=== PATIENT | male | born 1945 | race Caucasian/White ===

== ENCOUNTER 2021-01-28 08:36 | Inpatient (IN) | payer OTHER, MEDICAID, SELFPAY ==
[~2021-01-28] VITALS: Ht 172.7 cm; Wt 101.6 kg
[~2021-01-28 08:36] MED LIST: HYD10 PO; LEVO125C4 PO; LIP10 PO; NEU300 PO; [UNRECOGNIZED DRUG - OTHER]
[2021-01-28 08:37] VITALS: BP_SYST 95
--- NOTE | 2021-01-28 08:40 | NUR ---
PT IN OUTSIDE TRIAGE TENT, TRIAGED, AWAITING ER BED
--- NOTE | 2021-01-28 08:47 | NUR ---
PT STATES 3 DAYS WITH COUGHING, WHEEZING, BODY ACHES, FEVERS, SORE THROAT. JUST NOT FEELING WELL. PT STATES HE IS VACCINATED FOR COVID AND RECEIVED THE BOOSTER.
--- NOTE | 2021-01-28 09:02 | NUR ---
DR PETERSEN OUT TO TENT TO EVALUATE PT.
[2021-01-28] MEDS ORDERED: NACL 0.9% 1,000 ML IV ONE (09:15)
--- NOTE | 2021-01-28 09:15 | NUR ---
Pt. bib S.O. with concerns of congestion, mild SOB with pain to chest 5/10 X 3 days, and some dizziness, pt. has hx. 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
--- NOTE | 2021-01-28 09:18 | NUR ---
Patient transported to radiology via wheelchair, accompanied by staff.
--- NOTE | 2021-01-28 09:34 | NUR ---
lab at bedside for blood draw
[2021-01-28 09:48] LABS: BASOPHILS % (AUTO) 0.5 % (0.0-2.0); EOSINOPHILS # (AUTO) 0.2 K/uL (0.0-0.4); EOSINOPHILS % (AUTO) 2.9 % (0.0-4.0); HEMATOCRIT 36.6 % (36-54); LYMPHOCYTES # (AUTO) 1.3 K/uL (1.0-5.5); LYMPHOCYTES % (AUTO) 17.7 % (20.5-51.5); MEAN CORPUSCULAR HEMOGLOBIN 33 pg (27-31); MEAN CORPUSCULAR HGB CONC 36 % (32-36); MEAN CORPUSCULAR VOLUME 91 fL (79.0-98.0); MONOCYTES # (AUTO) 0.6 K/uL (0.0-1.0); MONOCYTES % (AUTO) 8.1 % (1.7-9.3); NEUTROPHILS # (AUTO) 5.1 K/uL (1.8-7.7); NEUTROPHILS % (AUTO) 70.8 % (40.0-70.0); PLATELET COUNT (AUTO) 203 K/uL (130-430); RED BLOOD CELL COUNT(AUTO) 4.01 MIL/uL (4.2-6.2); RED CELL DISTRIBUTION WIDTH 12.4 % (9.0-15.0); WHITE BLOOD COUNT (AUTO) 7.2 K/uL (4.8-10.8)
--- NOTE | 2021-01-28 09:59 | NUR ---
Medication reconciliation completed with information provided by patient. Any prior medication reconciliation on file was reviewed and corrected.
[2021-01-28 10:10] LABS: ANION GAP 8 (5-15); CALCIUM 8.5 mg/dL (8.4-11.0); CHLORIDE 98 mmol/L (98-107); CREATININE 1.15 mg/dL (0.55-1.30); GLUCOSE 89 mg/dL (70-99); POTASSIUM 3.6 mmol/L (3.5-5.1); SODIUM SERUM 131 mmol/L (136-145); UREA NITROGEN, BLOOD 14 mg/dL (8-21)
[2021-01-28 10:25] LABS: ALANINE AMINOTRANSFERASE 41 U/L (12-78); ALBUMIN 3.4 g/dL (3.4-4.8); ASPARTATE AMINOTRANSFERASE 34 U/L (10-37); BILIRUBIN,DIRECT 0.3 mg/dL (0.0-0.3); LIPASE 89 U/L (73-393); TOTAL BILIRUBIN 0.9 mg/dL (0.0-1.0)
[2021-01-28] MEDS ORDERED: HYDROCORTISONE SOD SUCC 100 MG/2 ML VIAL IVP ONE (10:30)
[2021-01-28 11:07] LABS: THYROID STIMULATING HORMONE 0.01 uIu/mL (0.36-3.74)
[2021-01-28 11:12] LABS: BILIRUBIN,URINE NEGATIVE (NEGATIVE); BLOOD, URINE NEGATIVE (NEGATIVE); CLARITY/URINE CLEAR (CLEAR); COLOR,URINE YELLOW (YELLOW); GLUCOSE,URINE NEGATIVE (NEGATIVE); KETONES,URINE NEGATIVE (NEGATIVE); LEUKOCYTE ESTERASE ,URINE NEGATIVE (NEGATIVE); NITRITE, URINE NEGATIVE (NEGATIVE); PROTEIN URINE NEGATIVE (NEGATIVE)
--- NOTE | 2021-01-28 11:55 | NUR ---
ADMISSION ORDER RECEIVED FROM DR. ALANIZ
--- NOTE | 2021-01-28 14:40 | NUR ---
Patient will be admitted to care of Dr. Durant. Admitted to tele unit. Will go to room 118A. Belongings list completed. Complete and up to date summary report printed. SBAR report given at bedside with Phong opportunity for questions.
[2021-01-28 14:43] VITALS: BP_SYST 115
--- NOTE | 2021-01-28 14:50 | NUR ---
Notes Admit patient from ER awake, alert and oriented, denies any chest pain at this time. On room air saturating well. Oriented to call light use. safety precaution observed. Enc to call fo help as needed. Pt verbalize understanding.
[2021-01-28 14:54] VITALS: BP_SYST 115
[2021-01-28 16:48] VITALS: BP_SYST 125
[2021-01-28] MEDS: guaiFENesin/DEXTROMETHORPHAN 10 ML UDC PO PRN (18:02)
--- NOTE | 2021-01-28 18:21 | NUR ---
closing notes Just eat dinner, denies any chest pain but complaining of cough and congestion, cough medicine given.
[2021-01-28 20:30] VITALS: BP_SYST 137
--- NOTE | 2021-01-28 21:25 | NUR ---
DR KATTY MACHUCA here to see patient and @ the bedside NEW ORDERS NOTED / .
[2021-01-28] MEDS ORDERED: HYDROCORTISONE 10 MG TABLET (CORTEF) PO SCH (22:00)
[2021-01-28] MEDS ORDERED: [UNRECOGNIZED DRUG - OTHER] SCH (22:00)
[2021-01-28] MEDS ORDERED: IPRATROPIUM/ALBUTEROL SULFATE 3 ML AMPUL.NEB (DUONEB) INH ONE (22:15)
[2021-01-28 22:45] VITALS: BP_SYST 135
--- NOTE | 2021-01-28 23:15 | NUR ---
ZITHROMAX 50 MG IVPB administer NO S/SX OF ADVERSE REACTION skin dry warm .
[2021-01-29] VITALS: BP_SYST 135
--- NOTE | 2021-01-29 | NUR ---
ROCEPHIN 1 GM IVPB administer patient awake also alert no adverse Reaction noted .
[2021-01-29] MEDS: guaiFENesin/DEXTROMETHORPHAN 10 ML UDC PO PRN ×2 (00:06→19:02)
[2021-01-29] MEDS ORDERED: AZITHROMYCIN 500 MG/VIAL (ZITHROMAX) IV ONE (00:37)
[2021-01-29] MEDS ORDERED: cefTRIAXone 1 GM IVPB PREMIX 50 ML IV ONE (00:38)
[2021-01-29] MEDS: cefTRIAXone 1 GM in D5W 50 ML IV SCH ×2 (01:02→21:51)
[2021-01-29] MEDS: AZITHROMYCIN 500 MG in NS 250 ML IV SCH ×2 (01:13→20:14)
--- NOTE | 2021-01-29 01:53 | NUR ---
ROBITUSSIN DM PO GIVEN FOR COUGH & HELPFUL assist as needed .
[2021-01-29] MEDS: IPRATROPIUM/ALBUTEROL SULFATE 3 ML AMPUL.NEB (DUONEB) INH PRN (04:18)
--- NOTE | 2021-01-29 05:09 | NUR ---
SPUTUM collected & sent to Lab .
--- NOTE | 2021-01-29 05:32 | NUR ---
Consultation Paged Reason for Consultation: Chest Pain Was consult called: Y Person who was notified: Alanna Consulting Physician: Dr. Liao Ordering Physician: Dr. Durant
[2021-01-29] MEDS: LEVOTHYROXINE SODIUM 0.137 MG TABLET PO SCH (06:09)
[2021-01-29] MEDS: IPRATROPIUM/ALBUTEROL SULFATE 3 ML AMPUL.NEB (DUONEB) INH SCH ×4 (07:34→20:28)
--- NOTE | 2021-01-29 08:00 | NUR ---
NOTES PATITENT AAOX 4. VITALS SIGNS STABLE. AFEBRILE. LUNGS BILATERALLY CLEAR. ABDOMEN SOFT AND NON DISTENDED HAS IV ACCESS ON THE LEFT HAND #20. SALINE LOCK, CALL LIGHTS WITHIN REACH. BED LOW POSITION, ALARMED AND LOCKED. USES URINAL TO VOID. NON PRODUCTIVE COUGH NOTED. WILL CONTINUE TO MONITOR.
[2021-01-29 08:03] LABS: ANION GAP 8 (5-15); CALCIUM 8.6 mg/dL (8.4-11.0); CHLORIDE 97 mmol/L (98-107); CREATININE 1.15 mg/dL (0.55-1.30); GLUCOSE 87 mg/dL (70-99); POTASSIUM 4.7 mmol/L (3.5-5.1); SODIUM SERUM 132 mmol/L (136-145); UREA NITROGEN, BLOOD 16 mg/dL (8-21)
--- NOTE | 2021-01-29 08:05 | NUR ---
SRIDHAR FROM RADIOLOGY CALLED FOR CT OF CHEST WITHOUT CONTRAST. PATIENT CAN EAT NOW.
[2021-01-29 08:28] VITALS: BP_SYST 125
[2021-01-29] MEDS: HYDROCORTISONE 10 MG TABLET (CORTEF) PO SCH ×2 (09:23→18:59)
--- NOTE | 2021-01-29 09:23 | NUR ---
DUE MEDS GIVEN
[2021-01-29 15:40] LABS: CHOLESTEROL 158 mg/dL (<200); HDL CHOLESTEROL 64 mg/dL (>45); TRIGLYCERIDES 87 mg/dL (30-150)
[2021-01-29 15:41] LABS: LDL CHOLESTEROL 83 mg/dL (<100)
[2021-01-29 17:08] VITALS: BP_SYST 128
[2021-01-29 17:16] VITALS: BP_SYST 128
[2021-01-29 20:02] VITALS: BP_SYST 113
[2021-01-29] MEDS: ATORVASTATIN 10 MG TABLET PO SCH (20:13)
--- NOTE | 2021-01-29 23:30 | NUR ---
IV RE-INSERTION: IV Cannula accidentally removed no bleeding . Restarted on left fore arm g.20 Successful after 2 attempts.kept secured. Will observe for any signs of infiltration.
[2021-01-29 23:51] VITALS: BP_SYST 112
--- NOTE | 2021-01-30 01:47 | NUR ---
Patient is awake with occasional dry cough , no SOB . Addendum: 01/30/21 at 0209 by Cheryle Baez RN Patient refused for bed alarm even after explaining his safety
[2021-01-30] MEDS: LEVOTHYROXINE SODIUM 0.137 MG TABLET PO SCH (06:12)
[2021-01-30 06:22] VITALS: BP_SYST 128
[2021-01-30 06:24] VITALS: BP_SYST 128
[2021-01-30 07:57] LABS: BASOPHILS % (AUTO) 0.2 % (0.0-2.0); EOSINOPHILS # (AUTO) 0.2 K/uL (0.0-0.4); EOSINOPHILS % (AUTO) 3.2 % (0.0-4.0); HEMATOCRIT 38.6 % (36-54); HEMOGLOBIN 13.3 g/dL (14.0-18.0); LYMPHOCYTES # (AUTO) 1.3 K/uL (1.0-5.5); MEAN CORPUSCULAR HEMOGLOBIN 32 pg (27-31); MEAN CORPUSCULAR HGB CONC 35 % (32-36); MEAN CORPUSCULAR VOLUME 93 fL (79.0-98.0); MONOCYTES # (AUTO) 0.7 K/uL (0.0-1.0); MONOCYTES % (AUTO) 10.3 % (1.7-9.3); NEUTROPHILS # (AUTO) 4.9 K/uL (1.8-7.7); NEUTROPHILS % (AUTO) 68.3 % (40.0-70.0); PLATELET COUNT (AUTO) 245 K/uL (130-430); RED BLOOD CELL COUNT(AUTO) 4.16 MIL/uL (4.2-6.2); RED CELL DISTRIBUTION WIDTH 12.4 % (9.0-15.0); WHITE BLOOD COUNT (AUTO) 7.2 K/uL (4.8-10.8)
[2021-01-30 08:00] VITALS: BP_SYST 108
[2021-01-30] MEDS: HYDROCORTISONE 10 MG TABLET (CORTEF) PO SCH ×2 (08:40→18:08)
[2021-01-30] MEDS: IPRATROPIUM/ALBUTEROL SULFATE 3 ML AMPUL.NEB (DUONEB) INH SCH ×4 (08:51→20:30)
[2021-01-30 10:15] LABS: ANION GAP 9 (5-15); CALCIUM 9.4 mg/dL (8.4-11.0); CHLORIDE 106 mmol/L (98-107); CREATININE 1.32 mg/dL (0.55-1.30); GLUCOSE 86 mg/dL (70-99); POTASSIUM 4.6 mmol/L (3.5-5.1); SODIUM SERUM 143 mmol/L (136-145); UREA NITROGEN, BLOOD 19 mg/dL (8-21)
[2021-01-30 12:00] VITALS: BP_SYST 115
--- NOTE | 2021-01-30 13:51 | NUR ---
CM: Discussed dcp with pt for homehealth f/u , the pt declined . Stated his sister, Brenda lives next door , she is the caregiver and provides all ADL's need, manages routine medication. LVM to Brenda to confirm the dcp. Addendum: 01/30/21 at 1453 by Troy Hallman RN >> Confirmed by sister/Brenda, does not want HH visiting nurse. The pt lives in back house in same property with Brenda. She will provide the total care for the pt.
[2021-01-30 16:00] VITALS: BP_SYST 122
[2021-01-30] MEDS: ATORVASTATIN 10 MG TABLET PO SCH (21:32)
[2021-01-30] MEDS: AZITHROMYCIN 500 MG in NS 250 ML IV SCH (21:32)
[2021-01-30] MEDS: guaiFENesin/DEXTROMETHORPHAN 10 ML UDC PO PRN (21:34)
[2021-01-30] MEDS: cefTRIAXone 1 GM in D5W 50 ML IV SCH (22:36)
[2021-01-31] VITALS (8 sets, daily range): BP systolic 104–135
[2021-01-31] MEDS: guaiFENesin/DEXTROMETHORPHAN 10 ML UDC PO PRN (05:27)
[2021-01-31] MEDS: LEVOTHYROXINE SODIUM 0.137 MG TABLET PO SCH (06:55)
[2021-01-31] MEDS: IPRATROPIUM/ALBUTEROL SULFATE 3 ML AMPUL.NEB (DUONEB) INH SCH ×3 (07:26→15:43)
--- NOTE | 2021-01-31 07:30 | NUR ---
RECEIVED REPORT FROM PM NURSE. PATIENT IS RESTING IN BED, AAO x4, DENIES PAIN/DISCOMFORT. RESPIRATIONS EVEN AND UL ON RA. ALL NEEDS MET. SAFETY MEASURES IN PLACE. CALL LIGHT IN REACH. WILL CONT TO MONITOR.
--- NOTE | 2021-01-31 07:46 | NUR ---
HANDOFF REPORT WITH KENDRA HELLER. MOHINDER QUILES RN
[2021-01-31] MEDS: HYDROCORTISONE 10 MG TABLET (CORTEF) PO SCH (09:19)
[2021-01-31] MEDS ORDERED: CEPH-548 PO (14:36)
[2021-01-31] MEDS ORDERED: IPRA3AMP9 INH (14:36)
[2021-01-31] MEDS: IPRATROPIUM/ALBUTEROL SULFATE 3 ML AMPUL.NEB (DUONEB) INH PRN (14:56)
--- NOTE | 2021-01-31 14:59 | NUR ---
CM: Faxed HH referral to [facility] . The patient already has Nebulizer machine, sister/Brenda will get medications via [facility]. Addendum: 01/31/21 at 1614 by Troy Hallman RN [facility] , tel # [phone] : monique Vinson, the pt is accepted. She will call sister Gutierrez for the visiting schedule.
[2021-01-31] MEDS ORDERED: AZITHROMYCIN 500 MG in NS 250 ML IV SCH (15:00)
[2021-01-31] MEDS ORDERED: cefTRIAXone 1 GM in D5W 50 ML IV SCH (15:30)
--- NOTE | 2021-01-31 18:16 | NUR ---
RECEIVED DISCHARGE ORDERS, PRINTED DISCHARGE INSTRUCTIONS/PACKET GIVEN AND EXPLAINED TO PATIENT. PATIENT BERBALIZED UNDERSTANDING OF ALL DISCHARGE INSTRUCTIONS/PACKET/PRESCRIPTIONS/EDUCATION MATERIALS. FOLLOW UP APPT. PT INSTRUCTED TO FOLLOW UP WITH PCP IN 2-3 DAYS. IV SITE REMOVED, CATH INTACT, NO BLEEDING NOTED. SIGNED DISCHARGE PACKET PLACED IN CHART. PATIENT STATES THAT FAMILY WILL ARRIVE TO PICK HIM UP AT 1830. DRESSED AND PREPARED FOR DISCHARGE.
--- NOTE | 2021-01-31 18:30 | NUR ---
ACCOMPANIED PT TO MAIN ENTRANCE VIA WHEELCHAIR, PT DISCHARGED HOME WITH FAMILY. PT LEFT WITH ALL BELONGINGS INCLUDING CELL PHONE, CELL PHONE CUSTOMER LOYALTY REPRESENTATIVE, [employer].
== END 2021-01-31 18:30 | disposition home health service (06) | DRG 202 ==
LOC: SED 08:36 → STU 11:55 → SMU 01-30 17:09
PROVIDERS: ADMIT Internal Medicine; ATTEND Internal Medicine
DX: J20.9 Acute bronchitis, unspecified (principal); J44.0 Chronic obstructive pulmonary disease with (acute) lower respiratory infection; E27.40 Unspecified adrenocortical insufficiency; E23.0 Hypopituitarism; J98.11 Atelectasis; J44.1 Chronic obstructive pulmonary disease with (acute) exacerbation; E87.1 Hypo-osmolality and hyponatremia; I95.9 Hypotension, unspecified; E78.5 Hyperlipidemia, unspecified; Z20.822 Contact with and (suspected) exposure to COVID-19; Z77.22 Contact with and (suspected) exposure to environmental tobacco smoke (acute) (chronic); H54.61 Unqualified visual loss, right eye, normal vision left eye; E66.9 Obesity, unspecified; E03.9 Hypothyroidism, unspecified; Z79.52 Long term (current) use of systemic steroids; Z90.2 Acquired absence of lung [part of]; Z86.14 Personal history of Methicillin resistant Staphylococcus aureus infection; Z87.01 Personal history of pneumonia (recurrent); Z68.34 Body mass index [BMI] 34.0-34.9, adult; Z79.899 Other long term (current) drug therapy
CPT/HCPCS: 36415; 71046-TC; 71250-TC; 76376; 80048; 80061; 80076; 81003; 82533; 82550; 83690; 83880; 84439; 84443; 84484; 85025; 86710; 87070-TC; 87205-TC; 93005; 93306; 94640; 94760; 96361; 96374; 97116-GP; 97163-GP; 99285; G0378; J0456; J0696; J1720; J7050; J7060

== ENCOUNTER 2021-11-01 15:17 | Emergency (ER) | payer OTHER, MEDICAID ==
[~2021-11-01] VITALS: Ht 172.7 cm; Wt 103.4 kg
[~2021-11-01 15:17] MED LIST changes: +IPRA3AMP9 INH; -NEU300 PO; +[UNRECOGNIZED DRUG - OTHER] PO
[2021-11-01 15:26] VITALS: BP_SYST 114
--- NOTE | 2021-11-01 15:33 | NUR ---
Patient to TENT Report given to ARTEM GARDNER AND .
--- NOTE | 2021-11-01 15:45 | NUR ---
ER at bedside examining patient.
[2021-11-01] MEDS ORDERED: PRED20TA PO (16:37)
[2021-11-01 18:00] VITALS: BP_SYST 118
--- NOTE | 2021-11-01 18:00 | NUR ---
Patient given written and verbal discharge instructions and verbalizes understanding. ER MD discussed with patient the results and treatment provided. Patient in stable condition. ID arm band removed. Rx of PREDNISONE given. Patient educated on pain management and to follow up with PMD. Pain Scale 0. Opportunity for questions provided and answered. Medication side effect fact sheet provided.
== END 2021-11-01 18:00 | disposition home or self-care (01) ==
LOC: SED 15:17
DX: J40 Bronchitis, not specified as acute or chronic (principal); J44.9 Chronic obstructive pulmonary disease, unspecified; R05.9 Cough, unspecified; Z79.899 Other long term (current) drug therapy
CPT/HCPCS: 71045; 93005; 99283

== ENCOUNTER 2022-03-23 14:32 | Emergency (ER) | payer OTHER, MEDICAID ==
[~2022-03-23] VITALS: Ht 172.7 cm; Wt 106.6 kg
[~2022-03-23 14:32] MED LIST changes: +PRED20TA PO
[2022-03-23 14:44] VITALS: BP_SYST 124
--- NOTE | 2022-03-23 14:59 | NUR ---
Patient to ER bed 08 to gown for evaluation. Side rails up.
--- NOTE | 2022-03-23 15:00 | NUR ---
AT BEDSIDE TO ASSESS PT.
--- NOTE | 2022-03-23 15:20 | NUR ---
# 20 gauge angiocath placed to RFA. Use of asceptic technique. Opsite placed over site. Blood return noted. Blood for lab drawn from site. Flushed with 10 cc of normal saline. No evidence of infiltration noted. Patient tolerated well.
[2022-03-23 15:39] LABS: BASOPHILS % (AUTO) 0.5 % (0.0-2.0); EOSINOPHILS # (AUTO) 0.2 K/uL (0.0-0.4); EOSINOPHILS % (AUTO) 3.6 % (0.0-4.0); HEMATOCRIT 37.5 % (36-54); HEMOGLOBIN 13.3 g/dL (14.0-18.0); LYMPHOCYTES % (AUTO) 22.8 % (20.5-51.5); MEAN CORPUSCULAR HEMOGLOBIN 33 pg (27-31); MEAN CORPUSCULAR HGB CONC 35 % (32-36); MEAN CORPUSCULAR VOLUME 93 fL (79.0-98.0); MONOCYTES # (AUTO) 0.7 K/uL (0.0-1.0); MONOCYTES % (AUTO) 15.4 % (1.7-9.3); NEUTROPHILS # (AUTO) 2.6 K/uL (1.8-7.7); NEUTROPHILS % (AUTO) 57.7 % (40.0-70.0); PLATELET COUNT (AUTO) 234 K/uL (130-430); RED BLOOD CELL COUNT(AUTO) 4.04 MIL/uL (4.2-6.2); RED CELL DISTRIBUTION WIDTH 12.9 % (9.0-15.0); WHITE BLOOD COUNT (AUTO) 4.5 K/uL (4.8-10.8)
--- NOTE | 2022-03-23 15:43 | NUR ---
COVID SWAB OBTAINED AND SENT TO LAB.
--- NOTE | 2022-03-23 15:45 | NUR ---
UA OBTAINED AND SENT TO LAB
[2022-03-23 16:21] LABS: BILIRUBIN,URINE NEGATIVE (NEGATIVE); CLARITY/URINE CLEAR (CLEAR); COLOR,URINE YELLOW (YELLOW); GLUCOSE,URINE NEGATIVE (NEGATIVE); KETONES,URINE NEGATIVE (NEGATIVE); LEUKOCYTE ESTERASE ,URINE NEGATIVE (NEGATIVE); NITRITE, URINE NEGATIVE (NEGATIVE); PROTEIN URINE NEGATIVE (NEGATIVE); UROBILINOGEN,URINE 0.2 (0.2-1.0)
[2022-03-23 16:22] LABS: ANION GAP 9 (5-15); CALCIUM 9.2 mg/dL (8.4-11.0); CHLORIDE 100 mmol/L (98-107); CREATININE 1.46 mg/dL (0.55-1.30); GLUCOSE 98 mg/dL (70-99); UREA NITROGEN, BLOOD 16 mg/dL (8-21)
[2022-03-23 16:25] LABS: BLOOD, URINE TRACE (NEGATIVE)
[2022-03-23] MEDS ORDERED: PHE25 PO (16:29)
[2022-03-23] MEDS ORDERED: LEVO125T8 PO (16:29)
[2022-03-23] MEDS ORDERED: CALC-823 PO (16:29)
[2022-03-23] MEDS ORDERED: DDA.1 (16:29)
[2022-03-23] MEDS ORDERED: DENO60DI SQ (16:29)
[2022-03-23] MEDS ORDERED: LIP20 PO (16:29)
--- NOTE | 2022-03-23 16:29 | NUR ---
MED REC, BELONGINGS COMPLETED.
[2022-03-23 16:38] LABS: ALANINE AMINOTRANSFERASE 67 U/L (12-78); ALBUMIN 3.4 g/dL (3.4-4.8); ASPARTATE AMINOTRANSFERASE 54 U/L (10-37); FREE T4 (FREE THYROXINE) 1.4 ng/dl (0.8-1.5); THYROID STIMULATING HORMONE 0.01 uIu/mL (0.36-3.74); TOTAL BILIRUBIN 0.7 mg/dL (0.0-1.0)
[2022-03-23 16:58] LABS: BACTERIA,URINE RARE /HPF (None Seen); RBC,URINE 0-3 /HPF (0-3); WBC,URINE 0-3 /HPF (0-3)
[2022-03-23 16:59] LABS: MUCUS,URINE None Seen /LPF (None Seen)
[2022-03-23 17:28] LABS: ACETONE, SERUM NEGATIVE (NEGATIVE)
[2022-03-23 18:06] VITALS: BP_SYST 132
== END 2022-03-23 18:06 | disposition home or self-care (01) ==
LOC: SED 14:32
DX: R53.1 Weakness (principal); R06.02 Shortness of breath; J44.9 Chronic obstructive pulmonary disease, unspecified; E11.9 Type 2 diabetes mellitus without complications; Z79.899 Other long term (current) drug therapy; Z20.822 Contact with and (suspected) exposure to COVID-19
CPT/HCPCS: 36415; 71045; 80053; 81000; 82009; 82550; 82962; 83605; 84439; 84443; 84484; 85025; 93005; 99285

== ENCOUNTER 2022-04-08 09:41 | Outpatient (CLI) | payer OTHER, MEDICAID ==
[~2022-04-08 09:41] MED LIST changes: +CALC-823 PO; +DDA.1; +DENO60DI SQ; +LEVO125T8 PO; +LIP20 PO; +PHE25 PO
== END 2022-04-08 20:31 | disposition home or self-care (01) ==
LOC: SCT 09:41
PROVIDERS: ATTEND Internal Medicine
DX: K76.0 Fatty (change of) liver, not elsewhere classified (principal); N28.89 Other specified disorders of kidney and ureter; I87.8 Other specified disorders of veins; R10.9 Unspecified abdominal pain
CPT/HCPCS: 74176; 76376; Q9967

== ENCOUNTER 2022-04-14 07:47 | Outpatient (CLI) | payer OTHER, MEDICAID | END 2022-04-14 21:19 | disposition home or self-care (01) | LOC: SUS 07:47 | PROVIDERS: ATTEND Internal Medicine | DX: R16.0 Hepatomegaly, not elsewhere classified (principal); N32.89 Other specified disorders of bladder; N20.0 Calculus of kidney; K80.20 Calculus of gallbladder without cholecystitis without obstruction | CPT/HCPCS: 76700-TC ==